=== PATIENT | female | born 1935 | race Caucasian/White ===

== ENCOUNTER 2022-05-24 16:25 | Inpatient (IN) ==
[2022-05-24 17:25] LABS: Basophils % 0.5 %; Eosinophils # 0.1 K/mcL (0.0-0.6); Eosinophils % 1.9 %; Hematocrit 29.7 % (35.3-44.9); Immature Granulocytes % 0.4 % (0-4); Lymphocytes # 0.9 K/mcL (0.6-4.6); Lymphocytes % 15.1 %; Mean Corpuscular HGB Conc 33.7 g/dL (31.6-35.5); Mean Corpuscular Hemoglobin 33.2 pg (28.0-33.3); Mean Corpuscular Volume 98.7 fL (83.0-100.0); Mean Platelet Volume 9.1 fL (9.4-12.4); Monocytes # 0.8 K/mcL (0.0-1.3); Monocytes % 14.4 %; Neutrophils # 3.9 K/mcL (1.6-8.9); Platelet Count 198 K/mcL (140-400); Red Blood Count 3.01 M/mcL (3.82-4.97); Red Cell Distribution Width 12.9 % (11.5-14.5); Segmented Neutrophils % 67.7 %; White Blood Count 5.7 K/mcL (4.3-11.1)
[2022-05-24 17:49] LABS: Potassium 5.1 mEq/L (3.5-5.1)
[2022-05-24 17:58] LABS: Troponin I 0.06 ng/mL (< 0.04)
[2022-05-24] MEDS ORDERED: Furosemide 40 MG/4 ML VIAL IVP ONE (18:41)
[2022-05-24] MEDS ORDERED: Acetaminophen 325 MG TABLET PO PRN (21:12)
[2022-05-24] MEDS ORDERED: Melatonin 3 MG TABLET PO PRN (21:16)
[2022-05-24] MEDS ORDERED: Naloxone 0.4 MG/ML INJ IVP PRN (21:16)
[2022-05-24] MEDS ORDERED: D5% in Water 1,000 ML IVC PRN (21:22)
[2022-05-24] MEDS ORDERED: *HR* Dextrose 50 % in Water (Syg) 50 ML SYRINGE IVP PRN (21:22)
[2022-05-24] MEDS ORDERED: Dextrose Gel 15 GM/37.5 ML TUBE PO PRN ×2 (21:22)
[2022-05-24] MEDS: Insulin LISPRO 300 UNITS/3 ML VIAL SUBQ SCH (22:58)
[2022-05-24] MEDS: Acetaminophen 325 MG TABLET PO PRN (23:07)
[2022-05-24 23:38] LABS: Thyroid Stimulating Hormone 4.352 mcIU/mL (0.340-5.600)
[2022-05-25 04:20] LABS: Hematocrit 29.4 % (35.3-44.9); Hemoglobin 9.9 g/dL (11.5-15.4); Mean Corpuscular HGB Conc 33.7 g/dL (31.6-35.5); Mean Corpuscular Hemoglobin 33.2 pg (28.0-33.3); Mean Corpuscular Volume 98.7 fL (83.0-100.0); Mean Platelet Volume 9.4 fL (9.4-12.4); Platelet Count 211 K/mcL (140-400); Red Blood Count 2.98 M/mcL (3.82-4.97); Red Cell Distribution Width 12.8 % (11.5-14.5); White Blood Count 6.9 K/mcL (4.3-11.1)
[2022-05-25 04:23] LABS: Calcium 8.8 mg/dL (8.6-10.3); Potassium 4.5 mEq/L (3.5-5.1)
[2022-05-25 04:31] LABS: Troponin I 0.08 ng/mL (< 0.04)
[2022-05-25] MEDS ORDERED: Aspirin 325 MG TABLET PO ONE (05:12)
[2022-05-25] MEDS: Levothyroxine 25 MCG TABLET PO SCH (05:35)
[2022-05-25] MEDS: *HR* Heparin 5,000 UNIT/ML VIAL SQ SCH ×3 (05:36→20:22)
[2022-05-25] MEDS: Insulin LISPRO 300 UNITS/3 ML VIAL SUBQ SCH ×4 (07:54→20:18)
[2022-05-25] MEDS: Furosemide 40 MG/4 ML VIAL IVP SCH (08:00)
[2022-05-25] MEDS: Magnesium Oxide 400 MG TABLET PO SCH (08:00)
[2022-05-25] MEDS: Loratadine 10 MG TABLET PO SCH (08:00)
[2022-05-25] MEDS: carvediloL 25 MG TABLET PO SCH ×2 (08:02→17:15)
[2022-05-25] MEDS ORDERED: Aspirin Enteric Coated 81 MG Tablet PO SCH (09:00)
[2022-05-25 10:35] LABS: Influenza A PCR Negative (Negative); Influenza B PCR Negative (Negative); Resp. Syncytial Virus PCR Negative (Negative)
[2022-05-25 10:36] LABS: SARS-CoV-2 by PCR (In House) Negative (Negative)
[2022-05-25] MEDS: Acetaminophen 325 MG TABLET PO PRN (17:24)
[2022-05-25] MEDS: Fluticasone Propionate Nasal 50 MCG/SPRAY BOTTLE NS SCH ×2 (20:27→20:29)
[2022-05-25] MEDS: Latanoprost 2.5 ML BOTTLE BOTH EYES SCH (21:09)
[2022-05-26] MEDS: Acetaminophen 325 MG TABLET PO PRN ×4 (00:11→20:51)
[2022-05-26] MEDS: *HR* Heparin 5,000 UNIT/ML VIAL SQ SCH ×3 (06:09→20:52)
[2022-05-26] MEDS: Levothyroxine 25 MCG TABLET PO SCH (06:09)
[2022-05-26] MEDS: Furosemide 40 MG/4 ML VIAL IVP SCH (07:44)
[2022-05-26] MEDS: Loratadine 10 MG TABLET PO SCH (07:44)
[2022-05-26] MEDS: Magnesium Oxide 400 MG TABLET PO SCH (07:44)
[2022-05-26] MEDS: Aspirin Enteric Coated 81 MG Tablet PO SCH (07:45)
[2022-05-26] MEDS: Insulin LISPRO 300 UNITS/3 ML VIAL SUBQ SCH ×4 (07:45→20:51)
[2022-05-26] MEDS: carvediloL 25 MG TABLET PO SCH ×2 (07:45→16:33)
[2022-05-26 08:02] LABS: Calcium 8.5 mg/dL (8.6-10.3); Potassium 4.4 mEq/L (3.5-5.1)
[2022-05-26] MEDS: lisinopriL 20 MG TABLET PO SCH (10:57)
[2022-05-26] MEDS: Latanoprost 2.5 ML BOTTLE BOTH EYES SCH (20:54)
[2022-05-26] MEDS: Fluticasone Propionate Nasal 50 MCG/SPRAY BOTTLE NS SCH (20:56)
[2022-05-27] MEDS: *HR* Heparin 5,000 UNIT/ML VIAL SQ SCH ×3 (05:24→21:05)
[2022-05-27] MEDS: Levothyroxine 25 MCG TABLET PO SCH (05:24)
[2022-05-27 06:16] LABS: Calcium 8.3 mg/dL (8.6-10.3); Magnesium 2.1 mg/dL (1.6-2.6); Potassium 4.6 mEq/L (3.5-5.1)
[2022-05-27] MEDS: Aspirin Enteric Coated 81 MG Tablet PO SCH (07:48)
[2022-05-27] MEDS: carvediloL 25 MG TABLET PO SCH ×2 (07:48→16:43)
[2022-05-27] MEDS: Loratadine 10 MG TABLET PO SCH (07:48)
[2022-05-27] MEDS: lisinopriL 20 MG TABLET PO SCH (07:48)
[2022-05-27] MEDS: Magnesium Oxide 400 MG TABLET PO SCH (07:48)
[2022-05-27] MEDS: Insulin LISPRO 300 UNITS/3 ML VIAL SUBQ SCH ×4 (07:48→21:05)
[2022-05-27] MEDS: Furosemide 40 MG/4 ML VIAL IVP SCH (07:49)
[2022-05-27] MEDS ORDERED: Patient Taking Own Medication 1 EACH TP SCH (09:00)
[2022-05-27] MEDS: Acetaminophen 325 MG TABLET PO PRN (21:04)
[2022-05-27] MEDS: Latanoprost 2.5 ML BOTTLE BOTH EYES SCH (21:07)
[2022-05-27] MEDS: Fluticasone Propionate Nasal 50 MCG/SPRAY BOTTLE NS SCH (21:07)
[2022-05-28] MEDS: Acetaminophen 325 MG TABLET PO PRN (06:10)
[2022-05-28] MEDS: *HR* Heparin 5,000 UNIT/ML VIAL SQ SCH ×2 (06:10→14:58)
[2022-05-28] MEDS: Levothyroxine 25 MCG TABLET PO SCH (06:10)
[2022-05-28 09:19] LABS: Calcium 8.6 mg/dL (8.6-10.3); Magnesium 2.2 mg/dL (1.6-2.6)
[2022-05-28] MEDS: Aspirin Enteric Coated 81 MG Tablet PO SCH (09:43)
[2022-05-28] MEDS: Magnesium Oxide 400 MG TABLET PO SCH (09:43)
[2022-05-28] MEDS: Furosemide 40 MG/4 ML VIAL IVP SCH (09:43)
[2022-05-28] MEDS: Loratadine 10 MG TABLET PO SCH (09:43)
[2022-05-28] MEDS: lisinopriL 20 MG TABLET PO SCH (09:43)
[2022-05-28] MEDS: carvediloL 25 MG TABLET PO SCH ×2 (09:43→17:14)
[2022-05-28] MEDS: Insulin LISPRO 300 UNITS/3 ML VIAL SUBQ SCH ×4 (09:44→21:15)
[2022-05-28] MEDS: Ondansetron 4 MG/2 ML VIAL IVP PRN (11:58)
[2022-05-28] MEDS: *HR* OxyCODONE Immed Rel 5 MG TABLET PO PRN ×2 (14:58→22:52)
[2022-05-28] MEDS ORDERED: Furosemide 40 MG/4 ML VIAL IVP SCH (21:00)
[2022-05-28] MEDS: Insulin DETEMIR 100 UNIT/ML X5UNITS SUBQ SCH (21:15)
[2022-05-29 03:02] LABS: Calcium 8.5 mg/dL (8.6-10.3); Magnesium 2.3 mg/dL (1.6-2.6)
[2022-05-29] MEDS: *HR* Heparin 5,000 UNIT/ML VIAL SQ SCH ×4 (04:31→21:32)
[2022-05-29] MEDS: Fluticasone Propionate Nasal 50 MCG/SPRAY BOTTLE NS SCH (04:31)
[2022-05-29] MEDS: Latanoprost 2.5 ML BOTTLE BOTH EYES SCH ×2 (06:31→21:30)
[2022-05-29] MEDS: Levothyroxine 25 MCG TABLET PO SCH (06:31)
[2022-05-29] MEDS ORDERED: Insulin Human Regular 10 UNIT in 0.9 % Sodium Chloride 10 ML IV ONE (08:29)
[2022-05-29] MEDS ORDERED: *HR* Dextrose 50 % in Water (Vial) 50 ML VIAL IVP ONE (08:29)
[2022-05-29] MEDS: Insulin LISPRO 300 UNITS/3 ML VIAL SUBQ SCH ×4 (08:48→21:25)
[2022-05-29] MEDS: *HR* OxyCODONE Immed Rel 5 MG TABLET PO PRN ×3 (09:45→21:35)
[2022-05-29] MEDS: Magnesium Oxide 400 MG TABLET PO SCH (09:46)
[2022-05-29] MEDS: Loratadine 10 MG TABLET PO SCH (09:46)
[2022-05-29] MEDS: Aspirin Enteric Coated 81 MG Tablet PO SCH (09:47)
[2022-05-29] MEDS: carvediloL 25 MG TABLET PO SCH ×2 (09:48→17:35)
[2022-05-29] MEDS: Calcium Gluconate 1gm/50mL 1 GM/50 ML BAG IVPB SCH ×2 (09:50→10:24)
[2022-05-29] MEDS ORDERED: 0.9 % Sodium Chloride 1,000 ML IVC SCH (10:30)
[2022-05-29 14:04] LABS: Calcium 8.9 mg/dL (8.6-10.3); Potassium 6.2 mEq/L (3.5-5.1)
[2022-05-29] MEDS: SODIUM ZIRCONIUM CYCLOSILICATE 5 GM POWD.PACK PO SCH ×2 (14:48→21:30)
[2022-05-29 19:52] LABS: Bacteria,Urine Few per hpf (None-Few); Bilirubin,Urine Negative (Negative); Blood,Urine Negative (Negative); Clarity,Urine Turbid (Clear); Color,Urine Yellow (Yellow); Glucose,Urine (UA) Normal (Normal); Hyaline Casts,Urine Few per lpf (None Seen); Ketones,Urine Negative (Negative); Leukocyte Esterase,Urine Moderate (Negative); Nitrite,Urine Negative (Negative); PH,Urine 5.5 pH Units (5.0-8.0); Protein,Urine 30 mg/dL (Neg-Trace); Specific Gravity,Urine 1.017 (1.010-1.025); Squamous Epithelial Cell,Urine Few per hpf (None-Few); Transitional Epi Cells,Urine Few per hpf (None-Few); Urobilinogen,Urine Normal (Normal); WBC,Urine 50-100 per hpf (0-3)
[2022-05-29] MEDS: Insulin DETEMIR 100 UNIT/ML X5UNITS SUBQ SCH (21:30)
[2022-05-30 01:39] LABS: Basophils # 0.1 K/mcL (0.0-0.2); Basophils % 0.8 %; Eosinophils # 0.2 K/mcL (0.0-0.6); Eosinophils % 3.1 %; Hematocrit 28.1 % (35.3-44.9); Hemoglobin 9.3 g/dL (11.5-15.4); Immature Granulocytes % 0.5 % (0-4); Lymphocytes # 1.3 K/mcL (0.6-4.6); Lymphocytes % 21.2 %; Mean Corpuscular HGB Conc 33.1 g/dL (31.6-35.5); Mean Corpuscular Hemoglobin 32.7 pg (28.0-33.3); Mean Corpuscular Volume 98.9 fL (83.0-100.0); Mean Platelet Volume 9.4 fL (9.4-12.4); Monocytes # 1.1 K/mcL (0.0-1.3); Monocytes % 17.7 %; Neutrophils # 3.5 K/mcL (1.6-8.9); Platelet Count 203 K/mcL (140-400); Red Blood Count 2.84 M/mcL (3.82-4.97); Red Cell Distribution Width 12.9 % (11.5-14.5); Segmented Neutrophils % 56.7 %; White Blood Count 6.1 K/mcL (4.3-11.1)
[2022-05-30] MEDS: Acetaminophen 325 MG TABLET PO PRN ×2 (01:42→21:45)
[2022-05-30 01:57] LABS: Calcium 8.4 mg/dL (8.6-10.3); Potassium 4.8 mEq/L (3.5-5.1)
[2022-05-30] MEDS: Levothyroxine 25 MCG TABLET PO SCH (05:51)
[2022-05-30] MEDS: *HR* Heparin 5,000 UNIT/ML VIAL SQ SCH ×3 (05:51→21:46)
[2022-05-30] MEDS: Insulin LISPRO 300 UNITS/3 ML VIAL SUBQ SCH ×4 (07:47→21:46)
[2022-05-30] MEDS: *HR* OxyCODONE Immed Rel 5 MG TABLET PO PRN (09:09)
[2022-05-30] MEDS: Aspirin Enteric Coated 81 MG Tablet PO SCH (09:09)
[2022-05-30] MEDS: Loratadine 10 MG TABLET PO SCH (09:09)
[2022-05-30] MEDS: Magnesium Oxide 400 MG TABLET PO SCH (09:09)
[2022-05-30] MEDS: carvediloL 25 MG TABLET PO SCH ×2 (09:09→17:04)
[2022-05-30] MEDS ORDERED: 0.9 % Sodium Chloride 1,000 ML IVC SCH (11:15)
[2022-05-30] MEDS ORDERED: Morphine Sulfate Oral CONC 10 MG/0.5 ML ORAL.SYG SL PRN (14:12)
[2022-05-30] MEDS: Insulin DETEMIR 100 UNIT/ML X5UNITS SUBQ SCH (21:46)
[2022-05-30] MEDS: Latanoprost 2.5 ML BOTTLE BOTH EYES SCH (21:48)
[2022-05-31 02:55] LABS: Calcium 8.3 mg/dL (8.6-10.3)
[2022-05-31 03:00] LABS: Basophils % 0.7 %; Eosinophils # 0.1 K/mcL (0.0-0.6); Eosinophils % 1.7 %; Hematocrit 27.3 % (35.3-44.9); Hemoglobin 9.1 g/dL (11.5-15.4); Immature Granulocytes % 0.3 % (0-4); Lymphocytes # 0.8 K/mcL (0.6-4.6); Lymphocytes % 13.4 %; Mean Corpuscular HGB Conc 33.3 g/dL (31.6-35.5); Mean Corpuscular Hemoglobin 32.9 pg (28.0-33.3); Mean Corpuscular Volume 98.6 fL (83.0-100.0); Mean Platelet Volume 9.4 fL (9.4-12.4); Monocytes # 0.8 K/mcL (0.0-1.3); Monocytes % 13.9 %; Neutrophils # 4.2 K/mcL (1.6-8.9); Platelet Count 207 K/mcL (140-400); Red Blood Count 2.77 M/mcL (3.82-4.97); Red Cell Distribution Width 12.7 % (11.5-14.5)
[2022-05-31] MEDS: Levothyroxine 25 MCG TABLET PO SCH (05:21)
[2022-05-31] MEDS: *HR* Heparin 5,000 UNIT/ML VIAL SQ SCH ×2 (05:22→13:44)
[2022-05-31] MEDS: Insulin LISPRO 300 UNITS/3 ML VIAL SUBQ SCH ×3 (08:33→16:35)
[2022-05-31] MEDS: Magnesium Oxide 400 MG TABLET PO SCH (09:48)
[2022-05-31] MEDS: Loratadine 10 MG TABLET PO SCH (09:48)
[2022-05-31] MEDS: Aspirin Enteric Coated 81 MG Tablet PO SCH (09:48)
[2022-05-31] MEDS: carvediloL 25 MG TABLET PO SCH ×2 (09:48→16:38)
[2022-05-31] MEDS: Acetaminophen 325 MG TABLET PO PRN (20:59)
[2022-05-31] MEDS: Insulin DETEMIR 100 UNIT/ML X5UNITS SUBQ SCH (21:00)
[2022-05-31] MEDS: Latanoprost 2.5 ML BOTTLE BOTH EYES SCH (21:00)
[2022-06-01 01:58] LABS: Basophils % 0.7 %; Eosinophils # 0.2 K/mcL (0.0-0.6); Eosinophils % 3.8 %; Hematocrit 28.6 % (35.3-44.9); Hemoglobin 9.7 g/dL (11.5-15.4); Immature Granulocytes % 0.5 % (0-4); Lymphocytes # 0.9 K/mcL (0.6-4.6); Lymphocytes % 16.4 %; Mean Corpuscular HGB Conc 33.9 g/dL (31.6-35.5); Mean Corpuscular Hemoglobin 33.4 pg (28.0-33.3); Mean Corpuscular Volume 98.6 fL (83.0-100.0); Mean Platelet Volume 9.4 fL (9.4-12.4); Monocytes # 0.8 K/mcL (0.0-1.3); Monocytes % 13.8 %; Neutrophils # 3.6 K/mcL (1.6-8.9); Platelet Count 208 K/mcL (140-400); Red Cell Distribution Width 12.9 % (11.5-14.5); Segmented Neutrophils % 64.8 %; White Blood Count 5.6 K/mcL (4.3-11.1)
[2022-06-01 02:17] LABS: Calcium 8.6 mg/dL (8.6-10.3); Potassium 5.1 mEq/L (3.5-5.1)
[2022-06-01] MEDS: Insulin LISPRO 300 UNITS/3 ML VIAL SUBQ SCH ×5 (04:31→20:40)
[2022-06-01] MEDS: *HR* Heparin 5,000 UNIT/ML VIAL SQ SCH ×4 (04:31→20:39)
[2022-06-01] MEDS: Levothyroxine 25 MCG TABLET PO SCH (06:02)
[2022-06-01] MEDS: carvediloL 25 MG TABLET PO SCH ×2 (08:09→17:36)
[2022-06-01] MEDS: Loratadine 10 MG TABLET PO SCH (08:09)
[2022-06-01] MEDS: Aspirin Enteric Coated 81 MG Tablet PO SCH (08:10)
[2022-06-01] MEDS: Magnesium Oxide 400 MG TABLET PO SCH (08:10)
[2022-06-01] MEDS: Latanoprost 2.5 ML BOTTLE BOTH EYES SCH (20:39)
[2022-06-01] MEDS: Insulin DETEMIR 100 UNIT/ML X5UNITS SUBQ SCH (20:40)
[2022-06-02] MEDS: Levothyroxine 25 MCG TABLET PO SCH (05:27)
[2022-06-02] MEDS: *HR* Heparin 5,000 UNIT/ML VIAL SQ SCH ×3 (05:27→20:41)
[2022-06-02 05:50] LABS: Hematocrit 29.7 % (35.3-44.9); Hemoglobin 9.9 g/dL (11.5-15.4); Mean Corpuscular HGB Conc 33.3 g/dL (31.6-35.5); Mean Corpuscular Hemoglobin 33.3 pg (28.0-33.3); Mean Platelet Volume 9.1 fL (9.4-12.4); Platelet Count 220 K/mcL (140-400); Red Blood Count 2.97 M/mcL (3.82-4.97); Red Cell Distribution Width 12.9 % (11.5-14.5); White Blood Count 5.3 K/mcL (4.3-11.1)
[2022-06-02 06:08] LABS: % Iron Saturation 6 % (15-50); Iron 26 mcg/dL (50-170); Transferrin 286 mg/dL (203-362)
[2022-06-02 06:11] LABS: Albumin 3.4 g/dL (3.5-5.7); Calcium 8.9 mg/dL (8.6-10.3); Phosphorous 4.7 mg/dL (2.7-4.5); Uric Acid 11.4 mg/dL (2.3-7.6)
[2022-06-02 06:21] LABS: Eosinophils # 0.1 K/mcL (0.0-0.6); Lymphocytes # 1.5 K/mcL (0.6-4.6); Monocytes # 0.6 K/mcL (0.0-1.3); Neutrophils # 3.1 K/mcL (1.6-8.9)
[2022-06-02 06:22] LABS: Platelet Estimate Normal (Normal)
[2022-06-02 06:33] LABS: Vitamin B12 993 pg/mL (250-1100)
[2022-06-02] MEDS: Insulin LISPRO 300 UNITS/3 ML VIAL SUBQ SCH ×4 (08:08→20:54)
[2022-06-02] MEDS: carvediloL 25 MG TABLET PO SCH ×2 (08:42→17:36)
[2022-06-02] MEDS: Magnesium Oxide 400 MG TABLET PO SCH (08:43)
[2022-06-02] MEDS: Loratadine 10 MG TABLET PO SCH (08:43)
[2022-06-02] MEDS: Aspirin Enteric Coated 81 MG Tablet PO SCH (08:43)
[2022-06-02 11:37] LABS: Vitamin D 25 Hydroxy 43 ng/mL (30-80)
[2022-06-02] MEDS: Acetaminophen 325 MG TABLET PO PRN (20:41)
[2022-06-02] MEDS: Insulin DETEMIR 100 UNIT/ML X5UNITS SUBQ SCH (20:42)
[2022-06-02] MEDS: Latanoprost 2.5 ML BOTTLE BOTH EYES SCH (20:42)
[2022-06-03 03:12] LABS: Basophils # 0.1 K/mcL (0.0-0.2); Basophils % 0.9 %; Eosinophils # 0.2 K/mcL (0.0-0.6); Eosinophils % 3.4 %; Hematocrit 29.1 % (35.3-44.9); Hemoglobin 9.8 g/dL (11.5-15.4); Immature Granulocytes % 0.4 % (0-4); Lymphocytes % 18.4 %; Mean Corpuscular HGB Conc 33.7 g/dL (31.6-35.5); Mean Corpuscular Hemoglobin 33.3 pg (28.0-33.3); Mean Platelet Volume 9.4 fL (9.4-12.4); Monocytes % 18.8 %; Neutrophils # 3.1 K/mcL (1.6-8.9); Platelet Count 213 K/mcL (140-400); Red Blood Count 2.94 M/mcL (3.82-4.97); Red Cell Distribution Width 12.9 % (11.5-14.5); Segmented Neutrophils % 58.1 %; White Blood Count 5.3 K/mcL (4.3-11.1)
[2022-06-03 03:31] LABS: Calcium 8.7 mg/dL (8.6-10.3); Potassium 5.3 mEq/L (3.5-5.1)
[2022-06-03 04:41] LABS: Platelet Estimate Normal (Normal)
[2022-06-03] MEDS: *HR* Heparin 5,000 UNIT/ML VIAL SQ SCH ×3 (05:44→21:45)
[2022-06-03] MEDS: Levothyroxine 25 MCG TABLET PO SCH (05:44)
[2022-06-03] MEDS: Insulin LISPRO 300 UNITS/3 ML VIAL SUBQ SCH ×4 (08:00→21:45)
[2022-06-03] MEDS: Magnesium Oxide 400 MG TABLET PO SCH (08:01)
[2022-06-03] MEDS: Loratadine 10 MG TABLET PO SCH (08:01)
[2022-06-03] MEDS: Aspirin Enteric Coated 81 MG Tablet PO SCH (08:01)
[2022-06-03] MEDS: carvediloL 25 MG TABLET PO SCH ×2 (08:01→16:41)
[2022-06-03] MEDS: Furosemide 20 MG/2 ML VIAL IVP SCH (13:36)
[2022-06-03] MEDS: Albumin 25% 25gram/100mL 25 GM/100 ML IV.SOLN IVPB SCH (16:41)
[2022-06-03] MEDS: Insulin DETEMIR 100 UNIT/ML X5UNITS SUBQ SCH (21:45)
[2022-06-03] MEDS: Latanoprost 2.5 ML BOTTLE BOTH EYES SCH (21:50)
[2022-06-04] MEDS: Albumin 25% 25gram/100mL 25 GM/100 ML IV.SOLN IVPB SCH ×4 (00:15→23:45)
[2022-06-04] MEDS: *HR* Heparin 5,000 UNIT/ML VIAL SQ SCH ×3 (05:30→20:28)
[2022-06-04] MEDS: Levothyroxine 25 MCG TABLET PO SCH (05:30)
[2022-06-04 06:00] LABS: Basophils % 0.6 %; Eosinophils # 0.2 K/mcL (0.0-0.6); Eosinophils % 3.9 %; Hematocrit 26.4 % (35.3-44.9); Hemoglobin 8.8 g/dL (11.5-15.4); Immature Granulocytes % 0.6 % (0-4); Lymphocytes # 0.9 K/mcL (0.6-4.6); Lymphocytes % 16.7 %; Mean Corpuscular HGB Conc 33.3 g/dL (31.6-35.5); Mean Corpuscular Hemoglobin 32.8 pg (28.0-33.3); Mean Corpuscular Volume 98.5 fL (83.0-100.0); Mean Platelet Volume 9.2 fL (9.4-12.4); Monocytes # 0.9 K/mcL (0.0-1.3); Monocytes % 17.7 %; Neutrophils # 3.1 K/mcL (1.6-8.9); Platelet Count 210 K/mcL (140-400); Red Blood Count 2.68 M/mcL (3.82-4.97); Segmented Neutrophils % 60.5 %; White Blood Count 5.1 K/mcL (4.3-11.1)
[2022-06-04 06:28] LABS: Calcium 8.9 mg/dL (8.6-10.3); Potassium 5.2 mEq/L (3.5-5.1)
[2022-06-04] MEDS ORDERED: *HR* Heparin 10,000 UNIT/10 ML VIAL ONE (06:50)
[2022-06-04] MEDS ORDERED: Iopamidol - 300 100 ML INFUS..BTL ONE (06:51)
[2022-06-04] MEDS ORDERED: 0.9 % Sodium Chloride 2,000 ML ONE (06:51)
[2022-06-04] MEDS ORDERED: Heparin 1,000 UNITS/500 mL 500 ML ONE (06:51)
[2022-06-04] MEDS ORDERED: *HR* Midazolam HCl 2 MG/2 ML VIAL ONE (07:24)
[2022-06-04] MEDS: Insulin LISPRO 300 UNITS/3 ML VIAL SUBQ SCH ×4 (08:56→20:28)
[2022-06-04] MEDS: Furosemide 20 MG/2 ML VIAL IVP SCH (09:09)
[2022-06-04] MEDS: carvediloL 25 MG TABLET PO SCH ×2 (12:54→17:25)
[2022-06-04] MEDS: Aspirin Enteric Coated 81 MG Tablet PO SCH (12:54)
[2022-06-04] MEDS: Loratadine 10 MG TABLET PO SCH (12:54)
[2022-06-04] MEDS: Magnesium Oxide 400 MG TABLET PO SCH (12:54)
[2022-06-04] MEDS: Acetaminophen 325 MG TABLET PO PRN (12:56)
[2022-06-04] MEDS: *HR* Acetylcysteine 20% 600 MG/3 ML ORAL SYRINGE PO SCH ×2 (12:56→20:28)
[2022-06-04] MEDS: Insulin DETEMIR 100 UNIT/ML X5UNITS SUBQ SCH (20:28)
[2022-06-04] MEDS: Latanoprost 2.5 ML BOTTLE BOTH EYES SCH (20:29)
[2022-06-05 02:15] LABS: Basophils % 0.7 %; Eosinophils % 0.9 %; Hematocrit 25.9 % (35.3-44.9); Hemoglobin 8.6 g/dL (11.5-15.4); Immature Granulocytes % 0.4 % (0-4); Lymphocytes # 0.6 K/mcL (0.6-4.6); Mean Corpuscular HGB Conc 33.2 g/dL (31.6-35.5); Mean Corpuscular Hemoglobin 32.8 pg (28.0-33.3); Mean Corpuscular Volume 98.9 fL (83.0-100.0); Mean Platelet Volume 9.7 fL (9.4-12.4); Monocytes # 0.6 K/mcL (0.0-1.3); Neutrophils # 3.3 K/mcL (1.6-8.9); Platelet Count 189 K/mcL (140-400); Red Blood Count 2.62 M/mcL (3.82-4.97); White Blood Count 4.6 K/mcL (4.3-11.1)
[2022-06-05 02:39] LABS: Potassium 5.6 mEq/L (3.5-5.1)
[2022-06-05] MEDS: *HR* Heparin 5,000 UNIT/ML VIAL SQ SCH ×3 (05:20→22:00)
[2022-06-05] MEDS: Levothyroxine 25 MCG TABLET PO SCH (05:20)
[2022-06-05] MEDS: Insulin LISPRO 300 UNITS/3 ML VIAL SUBQ SCH ×4 (07:53→21:38)
[2022-06-05] MEDS: Albumin 25% 25gram/100mL 25 GM/100 ML IV.SOLN IVPB SCH ×2 (08:13→16:25)
[2022-06-05] MEDS: polyethylene glycoL 3350 17 GM POWD.PACK PO SCH (08:13)
[2022-06-05] MEDS: Furosemide 20 MG/2 ML VIAL IVP SCH (08:13)
[2022-06-05] MEDS: Magnesium Oxide 400 MG TABLET PO SCH (08:13)
[2022-06-05] MEDS: carvediloL 25 MG TABLET PO SCH ×2 (08:14→16:25)
[2022-06-05] MEDS: Loratadine 10 MG TABLET PO SCH (08:14)
[2022-06-05] MEDS: Aspirin Enteric Coated 81 MG Tablet PO SCH (08:14)
[2022-06-05] MEDS ORDERED: SODIUM ZIRCONIUM CYCLOSILICATE 5 GM POWD.PACK PO SCH (09:00)
[2022-06-05] MEDS: SODIUM ZIRCONIUM CYCLOSILICATE 5 GM POWD.PACK PO SCH (11:06)
[2022-06-05] MEDS: Ondansetron 4 MG/2 ML VIAL IVP PRN (11:13)
[2022-06-05] MEDS: Acetaminophen 325 MG TABLET PO PRN (14:35)
[2022-06-05] MEDS ORDERED: Milk and Molasses Enema 200 ML RC ONE (21:46)
[2022-06-05] MEDS: Insulin DETEMIR 100 UNIT/ML X5UNITS SUBQ SCH (22:00)
[2022-06-05] MEDS: Latanoprost 2.5 ML BOTTLE BOTH EYES SCH (22:01)
[2022-06-06] MEDS: Albumin 25% 25gram/100mL 25 GM/100 ML IV.SOLN IVPB SCH ×3 (01:04→17:09)
[2022-06-06 03:53] LABS: Basophils % 0.5 %; Eosinophils % 0.7 %; Hematocrit 27.5 % (35.3-44.9); Hemoglobin 9.1 g/dL (11.5-15.4); Immature Granulocytes % 0.5 % (0-4); Lymphocytes # 0.8 K/mcL (0.6-4.6); Lymphocytes % 14.5 %; Mean Corpuscular HGB Conc 33.1 g/dL (31.6-35.5); Mean Corpuscular Volume 99.6 fL (83.0-100.0); Mean Platelet Volume 9.7 fL (9.4-12.4); Monocytes # 0.8 K/mcL (0.0-1.3); Monocytes % 13.9 %; Platelet Count 194 K/mcL (140-400); Red Blood Count 2.76 M/mcL (3.82-4.97); Red Cell Distribution Width 13.4 % (11.5-14.5); Segmented Neutrophils % 69.9 %; White Blood Count 5.7 K/mcL (4.3-11.1)
[2022-06-06 04:12] LABS: Calcium 9.3 mg/dL (8.6-10.3); Potassium 5.4 mEq/L (3.5-5.1)
[2022-06-06] MEDS: *HR* Heparin 5,000 UNIT/ML VIAL SQ SCH ×3 (06:32→20:57)
[2022-06-06] MEDS: Levothyroxine 25 MCG TABLET PO SCH (06:33)
[2022-06-06] MEDS: Acetaminophen 325 MG TABLET PO PRN ×2 (06:37→17:20)
[2022-06-06] MEDS: Insulin LISPRO 300 UNITS/3 ML VIAL SUBQ SCH ×4 (08:17→20:54)
[2022-06-06] MEDS: Furosemide 20 MG/2 ML VIAL IVP SCH (09:17)
[2022-06-06] MEDS: Loratadine 10 MG TABLET PO SCH (09:25)
[2022-06-06] MEDS: Aspirin Enteric Coated 81 MG Tablet PO SCH (09:25)
[2022-06-06] MEDS: polyethylene glycoL 3350 17 GM POWD.PACK PO SCH (09:25)
[2022-06-06] MEDS: Magnesium Oxide 400 MG TABLET PO SCH (09:25)
[2022-06-06] MEDS: carvediloL 25 MG TABLET PO SCH ×2 (09:25→17:20)
[2022-06-06] MEDS: SODIUM ZIRCONIUM CYCLOSILICATE 5 GM POWD.PACK PO SCH (09:26)
[2022-06-06] MEDS: Insulin DETEMIR 100 UNIT/ML X5UNITS SUBQ SCH (20:54)
[2022-06-06] MEDS: Latanoprost 2.5 ML BOTTLE BOTH EYES SCH (20:55)
[2022-06-07] MEDS: Acetaminophen 325 MG TABLET PO PRN ×2 (01:11→08:30)
[2022-06-07] MEDS: *HR* Heparin 5,000 UNIT/ML VIAL SQ SCH ×2 (04:53→14:08)
[2022-06-07] MEDS: Levothyroxine 25 MCG TABLET PO SCH (04:53)
[2022-06-07 06:20] LABS: Basophils % 0.4 %; Eosinophils # 0.1 K/mcL (0.0-0.6); Eosinophils % 0.8 %; Hematocrit 26.8 % (35.3-44.9); Hemoglobin 8.8 g/dL (11.5-15.4); Immature Granulocytes % 0.4 % (0-4); Lymphocytes # 0.9 K/mcL (0.6-4.6); Lymphocytes % 11.9 %; Mean Corpuscular HGB Conc 32.8 g/dL (31.6-35.5); Mean Corpuscular Hemoglobin 32.8 pg (28.0-33.3); Mean Platelet Volume 9.8 fL (9.4-12.4); Monocytes # 0.9 K/mcL (0.0-1.3); Neutrophils # 5.3 K/mcL (1.6-8.9); Platelet Count 194 K/mcL (140-400); Red Blood Count 2.68 M/mcL (3.82-4.97); Red Cell Distribution Width 13.7 % (11.5-14.5); Segmented Neutrophils % 73.5 %; White Blood Count 7.3 K/mcL (4.3-11.1)
[2022-06-07 06:39] LABS: Calcium 8.7 mg/dL (8.6-10.3); Phosphorous 6.3 mg/dL (2.7-4.5); Potassium 5.6 mEq/L (3.5-5.1)
[2022-06-07] MEDS ORDERED: 0.9 % Sodium Chloride 500 ML IVC PRN (08:06)
[2022-06-07] MEDS: carvediloL 25 MG TABLET PO SCH ×2 (08:10→16:32)
[2022-06-07] MEDS: Insulin LISPRO 300 UNITS/3 ML VIAL SUBQ SCH ×3 (08:33→16:31)
[2022-06-07] MEDS ORDERED: polyethylene glycoL 3350 17 GM POWD.PACK PO PRN (09:00)
[2022-06-07] MEDS: Magnesium Oxide 400 MG TABLET PO SCH (11:35)
[2022-06-07] MEDS: Loratadine 10 MG TABLET PO SCH (11:35)
[2022-06-07] MEDS: Aspirin Enteric Coated 81 MG Tablet PO SCH (11:35)
[2022-06-07] MEDS ORDERED: Vancomycin 1,000 MG, Sodium Chloride IRRigation 1,000 ML IR ONE (12:45)
[2022-06-07] MEDS ORDERED: SODIUM ZIRCONIUM CYCLOSILICATE 5 GM POWD.PACK PO SCH (15:30)
[2022-06-07] MEDS: Latanoprost 2.5 ML BOTTLE BOTH EYES SCH (19:16)
[2022-06-08] MEDS: Insulin LISPRO 300 UNITS/3 ML VIAL SUBQ SCH ×5 (01:18→20:07)
[2022-06-08] MEDS: Insulin DETEMIR 100 UNIT/ML X5UNITS SUBQ SCH ×2 (01:18→20:09)
[2022-06-08] MEDS: Acetaminophen 325 MG TABLET PO PRN (02:05)
[2022-06-08 02:43] LABS: Hematocrit 28.9 % (35.3-44.9); Hemoglobin 9.3 g/dL (11.5-15.4); Mean Corpuscular HGB Conc 32.2 g/dL (31.6-35.5); Mean Corpuscular Hemoglobin 32.5 pg (28.0-33.3); Mean Platelet Volume 10.2 fL (9.4-12.4); Platelet Count 210 K/mcL (140-400); Red Blood Count 2.86 M/mcL (3.82-4.97); Red Cell Distribution Width 13.7 % (11.5-14.5)
[2022-06-08 02:57] LABS: Calcium 8.8 mg/dL (8.6-10.3); Potassium 5.7 mEq/L (3.5-5.1)
[2022-06-08] MEDS: carvediloL 25 MG TABLET PO SCH ×2 (08:26→17:00)
[2022-06-08] MEDS: Magnesium Oxide 400 MG TABLET PO SCH (08:26)
[2022-06-08] MEDS: Loratadine 10 MG TABLET PO SCH (08:26)
[2022-06-08] MEDS: Levothyroxine 25 MCG TABLET PO SCH (08:26)
[2022-06-08] MEDS: Aspirin Enteric Coated 81 MG Tablet PO SCH (08:26)
[2022-06-08] MEDS: Ondansetron 4 MG/2 ML VIAL IVP PRN (08:47)
[2022-06-08] MEDS ORDERED: SODIUM ZIRCONIUM CYCLOSILICATE 5 GM POWD.PACK PO ONE (09:54)
[2022-06-08] MEDS ORDERED: Sodium Bicarbonate 75 MEQ in 0.45 % Sodium Chloride 1,000 ML IVC SCH ×2 (13:15→14:00)
[2022-06-08] MEDS: SODIUM ZIRCONIUM CYCLOSILICATE 5 GM POWD.PACK PO SCH (20:04)
[2022-06-08] MEDS: Latanoprost 2.5 ML BOTTLE BOTH EYES SCH (20:04)
[2022-06-09] MEDS ORDERED: Acetaminophen IV 1,000 MG/100 ML BAG IVPB ONE (00:23)
[2022-06-09] MEDS ORDERED: Prochlorperazine 10 MG/2 ML VIAL IVP ONE (00:25)
[2022-06-09 03:44] LABS: Hematocrit 27.3 % (35.3-44.9); Hemoglobin 9.3 g/dL (11.5-15.4); Mean Corpuscular HGB Conc 34.1 g/dL (31.6-35.5); Mean Corpuscular Hemoglobin 33.6 pg (28.0-33.3); Mean Corpuscular Volume 98.6 fL (83.0-100.0); Mean Platelet Volume 10.1 fL (9.4-12.4); Platelet Count 205 K/mcL (140-400); Red Blood Count 2.77 M/mcL (3.82-4.97); Red Cell Distribution Width 13.8 % (11.5-14.5); White Blood Count 8.6 K/mcL (4.3-11.1)
[2022-06-09 04:05] LABS: Calcium 8.4 mg/dL (8.6-10.3); Phosphorous 7.9 mg/dL (2.7-4.5)
[2022-06-09] MEDS: Levothyroxine 25 MCG TABLET PO SCH (04:47)
[2022-06-09] MEDS: Ondansetron 4 MG/2 ML VIAL IVP PRN (08:18)
[2022-06-09] MEDS: Insulin LISPRO 300 UNITS/3 ML VIAL SUBQ SCH ×4 (08:39→21:12)
[2022-06-09] MEDS: Aspirin Enteric Coated 81 MG Tablet PO SCH (09:18)
[2022-06-09] MEDS: carvediloL 25 MG TABLET PO SCH ×2 (09:18→17:24)
[2022-06-09] MEDS: Loratadine 10 MG TABLET PO SCH (09:18)
[2022-06-09] MEDS: SODIUM ZIRCONIUM CYCLOSILICATE 5 GM POWD.PACK PO SCH ×2 (09:19→21:13)
[2022-06-09] MEDS: Magnesium Oxide 400 MG TABLET PO SCH (09:19)
[2022-06-09] MEDS ORDERED: Furosemide 40 MG/4 ML VIAL IVP ONE (09:58)
[2022-06-09] MEDS ORDERED: Haloperidol Lactate 5 MG/ML VIAL IVP PRN (12:26)
[2022-06-09] MEDS: *HR* HYDROmorphone (PF) 1 MG/ML SYRINGE IVP PRN ×2 (16:11→21:09)
[2022-06-09] MEDS: Insulin DETEMIR 100 UNIT/ML X5UNITS SUBQ SCH (21:13)
[2022-06-09] MEDS: Latanoprost 2.5 ML BOTTLE BOTH EYES SCH (21:14)
[2022-06-09] MEDS: *HR* LORazepam 2 MG/ML VIAL IVP PRN (21:42)
[2022-06-09 23:50] VITALS: BP 89/40; PULSE 60; TEMP 97.4; O2SAT 97
[2022-06-10] MEDS: Levothyroxine 25 MCG TABLET PO SCH (04:47)
[2022-06-10] MEDS: *HR* HYDROmorphone (PF) 1 MG/ML SYRINGE IVP PRN ×4 (04:47→14:10)
[2022-06-10] MEDS: *HR* LORazepam 2 MG/ML VIAL IVP PRN ×2 (05:43→11:24)
[2022-06-10] MEDS: Insulin LISPRO 300 UNITS/3 ML VIAL SUBQ SCH ×2 (09:13→12:17)
[2022-06-10] MEDS: Aspirin Enteric Coated 81 MG Tablet PO SCH (09:14)
[2022-06-10] MEDS: carvediloL 25 MG TABLET PO SCH (09:14)
[2022-06-10] MEDS ORDERED: Glycopyrrolate 0.2 MG/ML VIAL IVP PRN (11:23)
[2022-06-10] MEDS ORDERED: *HR* LORazepam 2 MG/ML VIAL IVP PRN (11:24)
[2022-06-10] MEDS ORDERED: *HR* LORazepam 2 MG/ML VIAL IVP SCH (12:00)
== END 2022-06-10 16:40 | disposition hospice, inpatient (51) | DRG 280 ==
LOC: 3ANU 16:25 → EMEROOARM 16:25 → SUATTDRO 21:04 → 3ANU 21:30 → SUATTDRO 05-25 14:26 → 2ANU 06-09 14:20
PROVIDERS: ADMIT Internal Medicine; ATTEND Internal Medicine

== ENCOUNTER 2022-06-10 14:05 | Inpatient (IN) ==
[2022-06-10] MEDS ORDERED: *HR* HYDROmorphone (PF) 1 MG/ML SYRINGE IVP PRN (14:41)
[2022-06-10] MEDS ORDERED: Scopolamine Patch 1.5 MG PATCH.TD72 TD SCH (14:45)
[2022-06-10] MEDS ORDERED: Glycopyrrolate 0.2 MG/ML VIAL IVP PRN ×2 (14:57→22:33)
[2022-06-10] MEDS ORDERED: Saliva Stimulant 44.3ml BOTTLE PO PRN (14:59)
[2022-06-10] MEDS ORDERED: *HR* LORazepam 2 MG/ML VIAL IVP PRN ×2 (15:03→22:26)
[2022-06-10] MEDS ORDERED: Bisacodyl 10 MG RECTAL SUPPOSITORY RC PRN (15:08)
[2022-06-10] MEDS ORDERED: Hyoscyamine SL 0.125 MG TAB.SUBL SL PRN (15:09)
[2022-06-10] MEDS ORDERED: Haloperidol Oral Conc 10 MG/5 ML UDC PO PRN (15:10)
[2022-06-10] MEDS ORDERED: *HR* LORazepam Oral Conc 2 MG/ML SL PRN (15:14)
[2022-06-10] MEDS ORDERED: *HR* LORazepam 2 MG/ML VIAL IVP SCH (18:00)
[2022-06-10] MEDS: *HR* HYDROmorphone (PF) 1 MG/ML SYRINGE IVP PRN ×2 (18:55→21:10)
[2022-06-10] MEDS ORDERED: Lacri-Lube 3.5 GM TUBE BOTH EYES SCH (21:00)
[2022-06-10] MEDS ORDERED: Glycopyrrolate 0.2 MG/ML VIAL IVP ONE (22:33)
[2022-06-11] MEDS ORDERED: *HR* LORazepam 2 MG/ML VIAL IVP SCH
[2022-06-11] MEDS ORDERED: *HR* HYDROmorphone (PF) 1 MG/ML SYRINGE IVP SCH
== END 2022-06-11 00:06 | disposition expired | DRG 951 ==
LOC: 2ANU 16:50
PROVIDERS: ADMIT Internal Medicine Hospice and Palliative Medicine; ATTEND Internal Medicine Hospice and Palliative Medicine